=== PATIENT | male | born 1945 | race Caucasian/White ===

== ENCOUNTER 2017-10-19 12:05 | Emergency (ER) | payer MEDICARE ==
[~2017-10-19] VITALS: Ht 172.7 cm; Wt 56.7 kg
[2017-10-19 12:10] VITALS: BP 179/80
[2017-10-19] MEDS ORDERED: VALIUM10 MG PO (12:14)
[2017-10-19] MEDS ORDERED: NAPROSYN500 MG PO (16:50)
== END 2017-10-19 14:10 | disposition home or self-care (01) ==
LOC: ED 12:05
DX: M77.32 Calcaneal spur, left foot (principal); F17.200 Nicotine dependence, unspecified, uncomplicated; Z79.899 Other long term (current) drug therapy

== ENCOUNTER 2017-12-05 12:15 | Emergency (ER) | payer MEDICARE ==
[~2017-12-05] VITALS: Ht 175.2 cm; Wt 54.4 kg
[~2017-12-05 12:15] MED LIST: NAPROSYN500 MG PO; VALIUM10 MG PO
[2017-12-05 13:14] LABS: BASO % 0.1 % (0.0-1.0); EOS # 0.1 10*3/uL (0.0-0.4); EOS % 0.4 % (1.0-4.0); HEMATOCRIT 37.7 % (42.0-52.0); HEMOGLOBIN 12.5 g/dl (14.0-18.0); LYMPH # 0.8 10*3/uL (1.3-4.4); LYMPH % 5.5 % (27.0-41.0); MEAN CELL VOLUME 94.5 fl (80.0-94.0); MEAN CORPUSCULAR HGB 31.3 pg (27.0-31.0); MEAN CORPUSCULAR HGB CONC 33.2 g/dl (33.0-37.0); MEAN PLATELET VOLUME 10.8 fl (9.6-12.3); MONO # 0.7 10*3/uL (0.1-1.0); MONO % 5.2 % (3.0-9.0); NEUT % 88.5 % (47.0-73.0); PLATELET COUNT AUTOMATED 241 10*3/uL (130-400); RED BLOOD COUNT 3.99 10*6/uL (4.50-5.90); RED CELL DISTRI WIDTH 12.6 % (0-14.5); WHITE BLOOD COUNT 13.5 10*3/uL (4.8-10.8)
[2017-12-05 13:30] LABS: ALBUMIN 3.8 gm/dl (3.1-4.5); ALKALINE PHOSPHATASE 75 U/L (45-117); BUN 24 mg/dl (7-24); CHLORIDE 102 mmol/L (98-107); CREATININE 1.02 mg/dL (0.70-1.30); SGOT/AST 19 IU/L (3-35); SGPT/ALT 20 U/L (12-78); SODIUM 138 mmol/L (136-145); TOTAL PROTEIN 8.7 gm/dL (6.4-8.2)
[2017-12-05 13:34] LABS: ETHYL ALCOHOL < 3.0 mg/dl (<3)
[2017-12-05 14:15] LABS: ACT PARTIAL THROMBO TIME 24.3 SECONDS (20.8-31.5); INTERNATIONAL NORM RATIO 1.1 (2.0-3.5)
[2017-12-05 16:52] VITALS: BP 145/50
== END 2017-12-05 18:00 | disposition short-term general hospital (02) ==
LOC: ED 12:15
PROVIDERS: Nurse Practitioner Family
DX: I96 Gangrene, not elsewhere classified (principal); Z79.899 Other long term (current) drug therapy

== ENCOUNTER 2017-12-23 11:12 | Emergency (ER) | payer MEDICARE, OTHER ==
[~2017-12-23] VITALS: Ht 170.1 cm; Wt 54.4 kg
[2017-12-23] MEDS ORDERED: AUGMENTIN 875-875 MG PO (11:37)
[2017-12-23] MEDS ORDERED: GOOD NEIGHBOR650 MG PO (11:37)
[2017-12-23] MEDS ORDERED: APLISOL5 TUB UNIT IC (11:38)
[2017-12-23] MEDS ORDERED: ASPIRIN CHEWABL81 MG PO (11:38)
[2017-12-23] MEDS ORDERED: VITAMIN C500 M8 PO (11:38)
[2017-12-23] MEDS ORDERED: FLOMAX0.4 MG PO (11:39)
[2017-12-23] MEDS ORDERED: LISINOPRIL10 M1 PO (11:39)
[2017-12-23] MEDS ORDERED: LIPITOR80 MG PO (11:39)
[2017-12-23] MEDS ORDERED: MELOXICAM15 MG PO (11:39)
[2017-12-23] MEDS ORDERED: MULTIVITAMINS1 EAC5 PO (11:40)
[2017-12-23] MEDS ORDERED: NEURONTIN100 MG PO (11:40)
[2017-12-23] MEDS ORDERED: NORVASC5 MG PO (11:41)
[2017-12-23] MEDS ORDERED: ZINC50 M3 PO (11:42)
[2017-12-23] MEDS ORDERED: OXYCODONE HCL10 M1 PO (11:42)
[2017-12-23] MEDS ORDERED: PLAVIX75 M1 PO (11:42)
[2017-12-23 11:55] LABS: BASO # 0.1 10*3/uL (0.0-0.1); BASO % 0.9 % (0.0-1.0); EOS # 0.3 10*3/uL (0.0-0.4); EOS % 3.6 % (1.0-4.0); LYMPH # 1.1 10*3/uL (1.3-4.4); LYMPH % 11.4 % (27.0-41.0); MEAN CELL VOLUME 93.4 fl (80.0-94.0); MEAN CORPUSCULAR HGB 30.1 pg (27.0-31.0); MEAN CORPUSCULAR HGB CONC 32.3 g/dl (33.0-37.0); MEAN PLATELET VOLUME 9.3 fl (9.6-12.3); MONO % 10.1 % (3.0-9.0); NEUT # 6.9 10*3/uL (2.3-7.9); NEUT % 72.5 % (47.0-73.0); PLATELET COUNT AUTOMATED 526 10*3/uL (130-400); RED BLOOD COUNT 3.32 10*6/uL (4.50-5.90); RED CELL DISTRI WIDTH 14.1 % (0-14.5); WHITE BLOOD COUNT 9.5 10*3/uL (4.8-10.8)
[2017-12-23 12:06] LABS: ACT PARTIAL THROMBO TIME 22.7 SECONDS (20.8-31.5)
[2017-12-23 12:13] LABS: ALBUMIN 3.1 gm/dl (3.1-4.5); ALKALINE PHOSPHATASE 74 U/L (45-117); BUN 11 mg/dl (7-24); CHLORIDE 94 mmol/L (98-107); POTASSIUM 3.7 mmol/L (3.5-5.1); SGOT/AST 15 IU/L (3-35); SGPT/ALT 30 U/L (12-78); SODIUM 128 mmol/L (136-145); TOTAL PROTEIN 8.2 gm/dL (6.4-8.2)
[2017-12-23 13:33] VITALS: BP 137/53
== END 2017-12-23 13:58 | disposition short-term general hospital (02) ==
LOC: ED 11:12
PROVIDERS: Emergency Medicine
DX: T81.4XXA Infection following a procedure, initial encounter (principal); I96 Gangrene, not elsewhere classified; Z79.82 Long term (current) use of aspirin; Z79.899 Other long term (current) drug therapy

== ENCOUNTER 2018-01-06 15:38 | Emergency (ER) | payer MEDICARE, OTHER ==
[~2018-01-06] VITALS: Ht 167.6 cm; Wt 53.5 kg
[~2018-01-06 15:38] MED LIST changes: +APLISOL5 TUB UNIT IC; +ASPIRIN CHEWABL81 MG PO; +AUGMENTIN 875-875 MG PO; +FLOMAX0.4 MG PO; +GOOD NEIGHBOR650 MG PO; +LIPITOR80 MG PO; +LISINOPRIL10 M1 PO; +MELOXICAM15 MG PO; +MULTIVITAMINS1 EAC5 PO; +NEURONTIN100 MG PO; +NORVASC5 MG PO; +OXYCODONE HCL10 M1 PO; +PLAVIX75 M1 PO; +VITAMIN C500 M8 PO; +ZINC50 M3 PO
[2018-01-06 16:43] LABS: BASO # 0.1 10*3/uL (0.0-0.1); BASO % 0.4 % (0.0-1.0); EOS # 0.7 10*3/uL (0.0-0.4); EOS % 4.9 % (1.0-4.0); HEMATOCRIT 30.1 % (42.0-52.0); HEMOGLOBIN 9.9 g/dl (14.0-18.0); LYMPH # 1.3 10*3/uL (1.3-4.4); LYMPH % 8.4 % (27.0-41.0); MEAN CELL VOLUME 94.4 fl (80.0-94.0); MEAN CORPUSCULAR HGB CONC 32.9 g/dl (33.0-37.0); MEAN PLATELET VOLUME 9.9 fl (9.6-12.3); MONO # 0.8 10*3/uL (0.1-1.0); MONO % 5.3 % (3.0-9.0); NEUT % 80.3 % (47.0-73.0); PLATELET COUNT AUTOMATED 325 10*3/uL (130-400); RED BLOOD COUNT 3.19 10*6/uL (4.50-5.90); RED CELL DISTRI WIDTH 14.2 % (0-14.5); WHITE BLOOD COUNT 14.9 10*3/uL (4.8-10.8)
[2018-01-06 16:52] LABS: ACT PARTIAL THROMBO TIME 23.5 SECONDS (20.8-31.5)
[2018-01-06 16:59] LABS: ALBUMIN 3.3 gm/dl (3.1-4.5); ALKALINE PHOSPHATASE 90 U/L (45-117); BUN 26 mg/dl (7-24); CHLORIDE 97 mmol/L (98-107); CREATININE 1.05 mg/dL (0.70-1.30); LIPASE 51 U/L (73-393); POTASSIUM 4.4 mmol/L (3.5-5.1); SGOT/AST 16 IU/L (3-35); SGPT/ALT 21 U/L (12-78); SODIUM 129 mmol/L (136-145); TOTAL PROTEIN 8.5 gm/dL (6.4-8.2)
[2018-01-06 21:07] VITALS: BP 115/55
== END 2018-01-06 21:26 | disposition short-term general hospital (02) ==
LOC: ED 15:38
PROVIDERS: Physician Assistant
DX: T81.4XXA Infection following a procedure, initial encounter (principal); L03.116 Cellulitis of left lower limb; L02.416 Cutaneous abscess of left lower limb; E87.1 Hypo-osmolality and hyponatremia; Z95.5 Presence of coronary angioplasty implant and graft; Z79.899 Other long term (current) drug therapy; Z79.82 Long term (current) use of aspirin; Y92.9 Unspecified place or not applicable

== ENCOUNTER → 2019-04-06 | Outpatient (CLI) | payer MEDICARE | END | disposition home or self-care (01) | LOC: US 00:30 | DX: R09.89 Other specified symptoms and signs involving the circulatory and respiratory systems (principal); F17.200 Nicotine dependence, unspecified, uncomplicated; I10 Essential (primary) hypertension ==

== ENCOUNTER → 2019-07-27 | Outpatient (CLI) | payer OTHER | END | disposition home or self-care (01) | LOC: US 07-11 14:00 | DX: I65.21 Occlusion and stenosis of right carotid artery (principal); I10 Essential (primary) hypertension; R09.89 Other specified symptoms and signs involving the circulatory and respiratory systems ==

== ENCOUNTER 2020-08-25 22:54 | Emergency (ER) | payer OTHER ==
[~2020-08-25] VITALS: Ht 165.1 cm; Wt 63.5 kg
[2020-08-25 23:02] VITALS: BP 142/60
[2020-08-25 23:16] LABS: BASO % 0.3 % (0.0-1.0); EOS # 0.2 10*3/uL (0.0-0.4); EOS % 2.9 % (1.0-4.0); HEMATOCRIT 35.6 % (42.0-52.0); LYMPH # 1.1 10*3/uL (1.3-4.4); LYMPH % 18.4 % (27.0-41.0); MEAN CELL VOLUME 96.2 fl (80.0-94.0); MEAN CORPUSCULAR HGB 31.1 pg (27.0-31.0); MEAN CORPUSCULAR HGB CONC 32.3 g/dl (33.0-37.0); MONO # 0.4 10*3/uL (0.1-1.0); MONO % 6.7 % (3.0-9.0); NEUT # 4.2 10*3/uL (2.3-7.9); NEUT % 71.5 % (47.0-73.0); PLATELET COUNT AUTOMATED 211 10*3/uL (130-400); RED CELL DISTRI WIDTH 12.9 % (0-14.5); WHITE BLOOD COUNT 5.9 10*3/uL (4.8-10.8)
[2020-08-25 23:27] LABS: BUN 14 mg/dl (7-24); CHLORIDE 104 mmol/L (98-107); CREATININE 0.99 mg/dL (0.70-1.30); POTASSIUM 4.6 mmol/L (3.5-5.1); SODIUM 135 mmol/L (136-145)
[2020-08-26 02:08] LABS: BILIRUBIN Negative (Negative); BLOOD Negative (Negative); CLARITY Clear (Clear); COLOR Yellow (Yellow); GLUCOSE Negative (Negative); KETONE Trace (Negative); LEUKO ESTERASE Negative (Negative); NITRITE Negative (Negative); SPECIFIC GRAVITY 1.015 (1.001-1.030)
[2020-08-26 02:14] LABS: WBC 0-2 wbc/hpf (0-5)
== END 2020-08-26 03:10 | disposition home or self-care (01) ==
LOC: ED 22:54
PROVIDERS: Internal Medicine
DX: M79.604 Pain in right leg (principal); M79.605 Pain in left leg; G89.29 Other chronic pain; D53.9 Nutritional anemia, unspecified; Z79.899 Other long term (current) drug therapy

== ENCOUNTER → 2020-12-25 | Outpatient (CLI) | payer OTHER ==
[~2020-12-25] MED LIST changes: +ANTIFUNGAL113 GM T; +B12 ACTIVE1000 MCG PO; +ELIQUIS5 M1 PO; +GABAPENTIN100 M2 PO; +KLOR-CON M2020 ME1 PO; +LISINOPRIL5 MG PO; +NYSTOP60 GM T; +PHARMASSURE FO0.4 MG PO; +PHOS-NAK PACKE1 EACH PO; +POTASSIUM GLUC500 MG PO
[2020-12-25 15:58] LABS: CREATININE 0.97 mg/dL (0.70-1.30)
== END | disposition home or self-care (01) ==
LOC: LAB 01:30 → CT 15:00 → LAB 15:00
PROVIDERS: Radiology Diagnostic Radiology; ATTEND Registered Nurse
DX: Z01.812 Encounter for preprocedural laboratory examination (principal); I65.29 Occlusion and stenosis of unspecified carotid artery

== ENCOUNTER 2021-01-15 14:55 | Inpatient (IN) | payer OTHER ==
[~2021-01-15] VITALS: Ht 172.7 cm; Wt 49.6 kg
[~2021-01-15 14:55] MED LIST changes: -ANTIFUNGAL113 GM T; -B12 ACTIVE1000 MCG PO; -ELIQUIS5 M1 PO; -GABAPENTIN100 M2 PO; -KLOR-CON M2020 ME1 PO; -LISINOPRIL5 MG PO; -NYSTOP60 GM T; -PHARMASSURE FO0.4 MG PO; -PHOS-NAK PACKE1 EACH PO; -POTASSIUM GLUC500 MG PO
[2021-01-15 15:01] VITALS: BP 151/50
[2021-01-16] VITALS (8 sets, daily range): BP systolic 104–168; BP diastolic 49–86
[2021-01-16 10:55] LABS: BASO % 0.2 % (0.0-1.0); EOS % 0.9 % (1.0-4.0); HEMATOCRIT 35.1 % (42.0-52.0); LYMPH # 0.9 10*3/uL (1.3-4.4); LYMPH % 19.5 % (27.0-41.0); MEAN CELL VOLUME 97.2 fl (80.0-94.0); MEAN CORPUSCULAR HGB 32.1 pg (27.0-31.0); MEAN PLATELET VOLUME 10.3 fl (9.6-12.3); MONO # 0.4 10*3/uL (0.1-1.0); MONO % 8.3 % (3.0-9.0); NEUT # 3.2 10*3/uL (2.3-7.9); NEUT % 70.9 % (47.0-73.0); PLATELET COUNT AUTOMATED 245 10*3/uL (130-400); RED BLOOD COUNT 3.61 10*6/uL (4.50-5.90); RED CELL DISTRI WIDTH 13.4 % (0-14.5); WHITE BLOOD COUNT 4.5 10*3/uL (4.8-10.8)
[2021-01-16 11:18] LABS: ALBUMIN 2.7 gm/dl (3.1-4.5); ALKALINE PHOSPHATASE 60 U/L (45-117); BUN 8 mg/dl (7-24); CHLORIDE 107 mmol/L (98-107); CREATININE 0.65 mg/dL (0.70-1.30); POTASSIUM 3.8 mmol/L (3.5-5.1); SGOT/AST 12 IU/L (3-35); SGPT/ALT 12 U/L (12-78); SODIUM 138 mmol/L (136-145)
[2021-01-16 11:19] LABS: FREE T4 1.01 ng/dl (0.76-1.46)
[2021-01-16 11:24] LABS: THYROID STIM HORMONE (HS) 0.856 uIU/ml (0.358-4.75)
[2021-01-16 15:43] LABS: BILIRUBIN Negative (Negative); BLOOD Negative (Negative); CLARITY Clear (Clear); COLOR Yellow (Yellow); GLUCOSE Negative (Negative); KETONE 1+ (Negative); LEUKO ESTERASE Negative (Negative); NITRITE Negative (Negative)
[2021-01-16 16:23] LABS: BACTERIA 1+
[2021-01-16 16:24] LABS: EPITHELIAL CELLS 0-2; MUCOUS 1+; RBC 0-2 rbc/hpf (0-2)
[2021-01-17] VITALS: BP 177/64
[2021-01-17] MEDS ORDERED: KLOR-CON M2020 ME1 PO (01:11)
[2021-01-17] MEDS ORDERED: B12 ACTIVE1000 MCG PO (01:12)
[2021-01-17] MEDS ORDERED: POTASSIUM GLUC500 MG PO (01:13)
[2021-01-17] MEDS ORDERED: ANTIFUNGAL113 GM T (01:14)
[2021-01-17 06:30] LABS: BASO % 0.2 % (0.0-1.0); EOS # 0.1 10*3/uL (0.0-0.4); EOS % 1.5 % (1.0-4.0); HEMATOCRIT 33.4 % (42.0-52.0); LYMPH # 1.4 10*3/uL (1.3-4.4); LYMPH % 29.6 % (27.0-41.0); MEAN CELL VOLUME 97.1 fl (80.0-94.0); MEAN CORPUSCULAR HGB CONC 32.9 g/dl (33.0-37.0); MONO # 0.5 10*3/uL (0.1-1.0); MONO % 10.4 % (3.0-9.0); NEUT # 2.7 10*3/uL (2.3-7.9); NEUT % 58.1 % (47.0-73.0); PLATELET COUNT AUTOMATED 246 10*3/uL (130-400); RED BLOOD COUNT 3.44 10*6/uL (4.50-5.90); RED CELL DISTRI WIDTH 13.2 % (0-14.5); WHITE BLOOD COUNT 4.7 10*3/uL (4.8-10.8)
[2021-01-17 06:34] LABS: ALBUMIN 2.6 gm/dl (3.1-4.5); ALKALINE PHOSPHATASE 54 U/L (45-117); BUN 6 mg/dl (7-24); CHLORIDE 108 mmol/L (98-107); CREATININE 0.61 mg/dL (0.70-1.30); POTASSIUM 3.5 mmol/L (3.5-5.1); SGOT/AST 12 IU/L (3-35); SGPT/ALT 11 U/L (12-78); SODIUM 137 mmol/L (136-145); TOTAL PROTEIN 6.8 gm/dL (6.4-8.2)
[2021-01-17 12:00] VITALS: BP 121/62
[2021-01-17 16:00] VITALS: BP 139/67
[2021-01-17 20:00] VITALS: BP 125/50
[2021-01-18] VITALS: BP 154/55
[2021-01-18 08:00] VITALS: BP 143/52
[2021-01-18 12:00] VITALS: BP 140/77
[2021-01-18 16:00] VITALS: BP 157/47
[2021-01-18 20:00] VITALS: BP 158/88
[2021-01-19] VITALS: BP 144/64
[2021-01-19 06:34] LABS: BASO % 0.4 % (0.0-1.0); EOS # 0.1 10*3/uL (0.0-0.4); EOS % 1.6 % (1.0-4.0); HEMATOCRIT 33.4 % (42.0-52.0); LYMPH # 1.4 10*3/uL (1.3-4.4); MEAN CELL VOLUME 97.7 fl (80.0-94.0); MEAN CORPUSCULAR HGB 31.6 pg (27.0-31.0); MEAN CORPUSCULAR HGB CONC 32.3 g/dl (33.0-37.0); MEAN PLATELET VOLUME 11.3 fl (9.6-12.3); MONO # 0.4 10*3/uL (0.1-1.0); MONO % 8.6 % (3.0-9.0); NEUT # 2.9 10*3/uL (2.3-7.9); PLATELET COUNT AUTOMATED 230 10*3/uL (130-400); RED BLOOD COUNT 3.42 10*6/uL (4.50-5.90); RED CELL DISTRI WIDTH 13.4 % (0-14.5); WHITE BLOOD COUNT 4.9 10*3/uL (4.8-10.8)
[2021-01-19 06:50] LABS: BUN 9 mg/dl (7-24); CHLORIDE 106 mmol/L (98-107); CREATININE 0.68 mg/dL (0.70-1.30); POTASSIUM 3.8 mmol/L (3.5-5.1); SODIUM 138 mmol/L (136-145)
[2021-01-19 08:00] VITALS: BP 136/69
[2021-01-19 12:00] VITALS: BP 116/79
[2021-01-19 16:00] VITALS: BP 129/84
[2021-01-19 20:00] VITALS: BP 161/67
[2021-01-20] VITALS: BP 152/93
[2021-01-20 08:00] VITALS: BP 196/98
[2021-01-20 08:48] VITALS: BP 150/80
[2021-01-20 12:00] VITALS: BP 146/71
[2021-01-20 16:00] VITALS: BP 124/68
[2021-01-20 20:00] VITALS: BP 137/63
[2021-01-21] VITALS: BP 131/48
[2021-01-21 08:00] VITALS: BP 158/78
[2021-01-21 12:00] VITALS: BP 146/72
[2021-01-21 16:00] VITALS: BP 114/59
[2021-01-21 20:00] VITALS: BP 128/47
[2021-01-22] VITALS: BP 88/50; BP 98/53
[2021-01-22 04:00] VITALS: BP 124/76
[2021-01-22 08:00] VITALS: BP 160/66
[2021-01-22 12:00] VITALS: BP 142/54
[2021-01-22 16:00] VITALS: BP 135/43
[2021-01-22 20:00] VITALS: BP 142/63
[2021-01-23] VITALS: BP 127/61
[2021-01-23 06:42] LABS: BASO % 0.1 % (0.0-1.0); HEMATOCRIT 29.5 % (42.0-52.0); LYMPH # 1.4 10*3/uL (1.3-4.4); LYMPH % 10.5 % (27.0-41.0); MEAN CELL VOLUME 99.7 fl (80.0-94.0); MEAN CORPUSCULAR HGB 31.8 pg (27.0-31.0); MEAN CORPUSCULAR HGB CONC 31.9 g/dl (33.0-37.0); MEAN PLATELET VOLUME 11.7 fl (9.6-12.3); MONO # 0.8 10*3/uL (0.1-1.0); NEUT # 11.1 10*3/uL (2.3-7.9); NEUT % 82.9 % (47.0-73.0); PLATELET COUNT AUTOMATED 273 10*3/uL (130-400); RED BLOOD COUNT 2.96 10*6/uL (4.50-5.90); RED CELL DISTRI WIDTH 13.4 % (0-14.5); WHITE BLOOD COUNT 13.4 10*3/uL (4.8-10.8)
[2021-01-23 07:06] LABS: BUN 11 mg/dl (7-24); CHLORIDE 106 mmol/L (98-107); CREATININE 0.64 mg/dL (0.70-1.30); POTASSIUM 3.7 mmol/L (3.5-5.1); SODIUM 138 mmol/L (136-145)
[2021-01-23 08:00] VITALS: BP 138/68
[2021-01-23] MEDS ORDERED: VALIUM10 MG PO (08:36)
[2021-01-23] MEDS ORDERED: GABAPENTIN100 M2 PO (08:36)
[2021-01-23] MEDS ORDERED: NYSTOP60 GM T (08:36)
[2021-01-23] MEDS ORDERED: PHOS-NAK PACKE1 EACH PO (08:36)
[2021-01-23] MEDS ORDERED: LISINOPRIL5 MG PO (08:36)
[2021-01-23] MEDS ORDERED: OXYCODONE HCL10 M1 PO (08:36)
[2021-01-23] MEDS ORDERED: PHARMASSURE FO0.4 MG PO (08:36)
[2021-01-23] MEDS ORDERED: ELIQUIS5 M1 PO (08:45)
[2021-01-23 09:03] VITALS: BP 155/65
[2021-01-23 12:00] VITALS: BP 132/62
== END 2021-01-23 14:00 | DRG 884 ==
LOC: ED 14:55 → EDHOLD 01-16 09:52 → 4E 01-16 20:03
PROVIDERS: Internal Medicine; ADMIT Emergency Medicine; ATTEND Emergency Medicine
DX: R54 Age-related physical debility (principal); G93.41 Metabolic encephalopathy; E43 Unspecified severe protein-calorie malnutrition; R64 Cachexia; Z68.1 Body mass index [BMI] 19.9 or less, adult; R62.7 Adult failure to thrive; I73.9 Peripheral vascular disease, unspecified; Z20.822 Contact with and (suspected) exposure to COVID-19; D53.9 Nutritional anemia, unspecified; F17.210 Nicotine dependence, cigarettes, uncomplicated; D72.819 Decreased white blood cell count, unspecified; F41.9 Anxiety disorder, unspecified; G89.21 Chronic pain due to trauma; E53.8 Deficiency of other specified B group vitamins; R41.9 Unspecified symptoms and signs involving cognitive functions and awareness; R41.0 Disorientation, unspecified; F43.10 Post-traumatic stress disorder, unspecified; I16.0 Hypertensive urgency; S91.301A Unspecified open wound, right foot, initial encounter; X58.XXXA Exposure to other specified factors, initial encounter; Z78.9 Other specified health status; Y93.89 Activity, other specified; Y92.89 Other specified places as the place of occurrence of the external cause; Y99.8 Other external cause status; S51.011A Laceration without foreign body of right elbow, initial encounter; Z82.49 Family history of ischemic heart disease and other diseases of the circulatory system